=== PATIENT | female | born 1965 ===

== ENCOUNTER 2018-02-03 08:55 | Inpatient (IN) | payer OTHER ==
[~2018-02-03] VITALS: Ht 167.6 cm; Wt 74.8 kg
[2018-02-04] MEDS ORDERED: ULTRACET PO (08:57)
[2018-02-04] MEDS ORDERED: PEPCID20 MG PO (08:57)
[2018-02-05] MEDS ORDERED: CODE1TAB37 PO (07:35)
== END 2018-02-05 10:18 | disposition home or self-care (01) | DRG 419 ==
LOC: ER 08:55 → SURH 12:42 → O/R 12:42 → SURH 18:41
PROVIDERS: Surgery
PROC: BF13YZZ Fluoroscopy of Gallbladder and Bile Ducts using Other Contrast (ICD-10-PCS; 2018-02-03)
PROC: BW40ZZZ Ultrasonography of Abdomen (ICD-10-PCS; 2018-02-03)
PROC: 0FT44ZZ Resection of Gallbladder, Percutaneous Endoscopic Approach (ICD-10-PCS; principal; 2018-02-03 13:15)
DX: K80.00 Calculus of gallbladder with acute cholecystitis without obstruction (principal); K29.00 Acute gastritis without bleeding

== ENCOUNTER 2020-08-10 18:40 | Emergency (ER) | payer OTHER ==
[~2020-08-10] VITALS: Ht 167.6 cm; Wt 73.5 kg
[~2020-08-10 18:40] MED LIST: CODE1TAB37 PO; PEPCID20 MG PO; ULTRACET PO
== END 2020-08-10 20:19 | disposition home or self-care (01) ==
LOC: ER 18:40
DX: B34.9 Viral infection, unspecified (principal); Z20.822 Contact with and (suspected) exposure to COVID-19